=== PATIENT | female | born 1950 | race Caucasian/White ===

== ENCOUNTER 2016-10-05 07:20 | Day surgery (SDC) | payer MEDICARE ==
[~2016-10-05 07:20] MED LIST: EPINEPHrine 1:10,000 1 MG/10 ML Syringe ONE; Lactated Ringers 1,000 ML IV SCH; Lidocaine 2% 5 ML SDV ONE; Midazolam 1 MG/ML 2 ML SDV ONE; Propofol 200 MG/20 ML SDV ONE; Sodium Chloride 0.9% 5 ML Syringe FLUSH PRN; fentaNYL 100 MCG/2 ML SDV ONE
[2016-10-05] MEDS ORDERED: Midazolam 1 MG/ML 2 ML SDV IV ONE (08:11)
[2016-10-05] MEDS ORDERED: fentaNYL 100 MCG/2 ML SDV IV ONE (08:11)
[2016-10-05] MEDS ORDERED: Propofol 200 MG/20 ML SDV IV ONE (08:11)
--- NOTE | 2016-10-05 08:48 | PCM.OPNOTE ---
- General Post-Op/Procedure Note Date of Surgery/Procedure: 10/05/16 Operative Procedure(s): Upper GI endoscopy Anesthesia Technique: MAC Primary Surgeon: Melissa Schmidt Complications: None Free Text/Narrative:: INFORMED CONSENT: Patient is here today for elective upper GI endoscopy. All aspects of this procedure have been discussed with the patient. All possible complications also, including possibility of perforation, infection, pain, bleeding, numbness of the throat, swallowing difficulty and unknown complications. In the event of perforation the patient may need surgical exploration to repair the defect. The patient understands fully well. Patient did not have any further questions for me at the end of my interview. The patient wishes for me to proceed. INSTRUMENT USED: Video gastroscope ANESTHESIA: [MAC] ASA CLASSIFICATION: [2] PROCEDURE PERFORMED: [upper GI endoscopy] PHARYNX: Normal. ESOPHAGUS: Normal. Proximal: Normal. Middle: Normal. Lower: Normal. GE Junction: mild inflammation noted. also noted was a small quantity of old blood. Exact etiology is not determined at this time. There were no varices, ulcerations or strictures. Strictures were noted previously. 2 cm hiatal hernia without inflammation noted. STOMACH: Normal. Cardia: Normal. Fundus: Normal. Lesser Curvature: Normal. Greater Curvature: Normal. Antrum: Normal. Pylorus: Normal. DUODENUM: Normal. First Part: Normal. Second Part: Normal. Third Part: Normal. RETROFLEXION: Normal. BIOPSY: None. TOLERANCE: Excellent. COMPLICATIONS: None.
[2016-10-05 14:01] VITALS: BP 157/82
== END 2016-10-05 10:15 | disposition home or self-care (01) ==
LOC: KA.SDS 07:20
PROVIDERS: ATTEND Family Medicine
DX: K44.9 Diaphragmatic hernia without obstruction or gangrene (principal); K20.9 Esophagitis, unspecified; E66.01 Morbid (severe) obesity due to excess calories; F32.9 Major depressive disorder, single episode, unspecified; K21.9 Gastro-esophageal reflux disease without esophagitis; Z88.8 Allergy status to other drugs, medicaments and biological substances; Z79.899 Other long term (current) drug therapy
CPT/HCPCS: 43235; J2250; J2704; J3010; J7120; 00740

== ENCOUNTER 2017-01-31 16:09 | Emergency (ER) | payer MEDICARE ==
[2017-01-31] MEDS ORDERED: Ketorolac 60 MG/2 ML SDV IM ONE (16:11)
[2017-01-31] MEDS ORDERED: Cyclobenzaprine 10 MG Tab PO ONE ×2 (16:11→17:50)
[2017-01-31 16:34] VITALS: BP 129/50
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
[2017-01-31] MEDS ORDERED: Cyclobenzaprine 10 MG Tab ONE (17:49)
[2017-01-31] MEDS ORDERED: Ketorolac 10 MG Tab PO ONE (17:50)
[2017-01-31] MEDS ORDERED: Ketorolac 10 MG Tab ONE (17:50)
== END 2017-01-31 18:00 | disposition home or self-care (01) ==
LOC: KA.ED 16:09
DX: M54.5 Low back pain (principal); G89.29 Other chronic pain; K21.9 Gastro-esophageal reflux disease without esophagitis; Z88.5 Allergy status to narcotic agent; Z88.6 Allergy status to analgesic agent; Z79.899 Other long term (current) drug therapy
CPT/HCPCS: 72100; 96372; 99283; A9270; J1885

== ENCOUNTER 2018-08-04 22:06 | Observation (INO) | payer MEDICARE ==
[2018-08-04] MEDS ORDERED: Aspirin 81 MG Tab.Chew ONE (22:45)
[2018-08-04] MEDS ORDERED: Aspirin 81 MG Tab.Chew PO ONE (22:52)
[2018-08-04] MEDS: Nitroglycerin 0.4 MG Tab.SL SL PRN ×2 (22:55→23:30)
[2018-08-04 23:18] LABS: ANION GAP 13.8 mmol/L (5-15); CHLORIDE,CL 109 mmol/L (98-115); SODIUM,NA 143 mmol/L (136-145)
[2018-08-05] MEDS ORDERED: Ondansetron 4 MG/2 ML SDV IVPUSH PRN (00:16)
[2018-08-05] MEDS ORDERED: Morphine 2 MG/ML Syringe IVPUSH PRN (00:17)
[2018-08-05] MEDS: Nitroglycerin 0.4 MG Tab.SL SL PRN (02:30)
[2018-08-05] MEDS ORDERED: Nitroglycerin 0.4 MG Tab.SL SL ONE (03:07)
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
[2018-08-05 04:02] LABS: BARBITURATE SCREEN,URINE NEGATIVE (NEGATIVE); BENZODIAZEPINES SCREEN,URINE NEGATIVE (NEGATIVE); TCA SCREEN,URINE NEGATIVE (NEGATIVE); THC SCREEN,URINE 50 NG/ML NEGATIVE (NEGATIVE)
[2018-08-05 06:02] VITALS: BP 147/73
--- NOTE | 2018-08-05 09:28 | CR ---
[id number] RAD/RAD Chest Portable EXAM: PORTABLE CHEST RADIOGRAPH. INDICATION: CHEST PAIN COMPARISON: CORRELATION IS MADE WITH THE EXAM OF FEBRUARY 22, 2015. FINDINGS: The lungs are clear. The cardiomediastinal contour is normal. The regional bones and soft tissues are unremarkable. There is no pneumothorax. IMPRESSION: NO ACUTE PROCESS. Kristopher Rm MD 08/05/18 0927 Thank you for allowing us to participate in the care of your patient.
--- NOTE | 2018-08-05 10:54 | PCM.HP ---
H&P History of Present Illness - General Date of Service: 08/05/18 Admit Problem/Dx: Chest/shoulder pain Source of Information: Patient, Old Records History Limitations: Reports: No Limitations - History of Present Illness Initial Comments - Free Text/Narative: Ms. Berg states that she has had chronic neck and right shoulder pain which has been worsening over the past several months and she has been considering further work-up with her PCP STEPHANIE Adams, at recent appointments. On the evening of 08/04/18 around 2130 (incorrectly documented as 0930 in ED note ), she was sitting in the living room when she had worsening of right anterior shoulder and upper chest pain. She reports having not done anything out of the ordinary lately. Pain described as sharp and with radiation down her RUE with associated transient numbness and tingling. Palpation of the area of the anterior chest reproduced pain and pain was aggravated by "moving neck the wrong way." She felt diaphoretic as well, but denied any other associated symptoms, including left sided chest, neck, or LUE pain, palpitations, shortness of breath, or epigastric pain. Denied any worsening with exertion. She takes ibuprofen and acetaminophen at baseline for chronic back and neck pain. She was brought into the [facility] ED by a friend for further evaluation. She was given nitro x2 with eventual resolution of pain, but then later was present without change with nitro. This morning on rounds, she continues to have neck and R shoulder pain, but denies any radiation of pain into her RUE or other cardiopulmonary symptoms. She admits to having restarted taking phentermine which was previously prescribed to her, but denies any illicit drug use. Reports taking her other medications as prescribed. States she has a history of heart attack over 10 years ago, but that they did a catheterization at that time and "no blockages were found." She denies any other known heart disease. Due to having her chronic neck and shoulder pain and labs not showing elevated troponin, patient desires discharge to home. She wishes to await any further cardiac testing until seeing her PCP in follow-up and deciding on further work-up and management at that time. - Related Data Allergies/Adverse Reactions: Allergies Allergy/AdvReac Type Severity Reaction Status Date / Time aspirin Allergy Unknown Nausea Verified 08/05/18 02:12 codeine Allergy Unknown Nausea Verified 08/05/18 02:12 Home Medications: Home Meds Sertraline HCl 200 mg PO DAILY 07/29/13 [History] ClonazePAM [KlonoPIN] 0.5 mg PO BEDTIME PRN 09/28/16 [History] Diclofenac Sodium [Voltaren 1% Gel] 1 applic TOP BID PRN 09/28/16 [History] Ibuprofen 200 mg PO TID PRN 09/28/16 [History] Omeprazole 20 mg PO DAILY 09/28/16 [History] buPROPion [Wellbutrin XL] 300 mg PO DAILY 09/28/16 [History] Past Medical History HEENT History: Reports: Hard of Hearing, Impaired Vision Cardiovascular History: Reports: [place] Respiratory History: Reports: None Gastrointestinal History: Reports: Cholelithiasis, GERD, Irritable Bowel Syndrome, Other (See Below) Other Gastrointestinal History: Gastric polyps Genitourinary History: Reports: Other (See Below) Other Genitourinary History: Dribbling 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: Musculoskeletal History: Reports: Arthritis, Back Pain, Chronic, Fracture Other Musculoskeletal History: 2012 right foot fracture with screw placement ; Rib fractures Neurological History: Reports: Headaches, Chronic Psychiatric History: Reports: Anxiety, Depression, Eating Disorders, Mood Swings Endocrine/Metabolic History: Reports: None Hematologic History: Reports: Bleeding Disorder, Blood Transfusion(s), Iron Deficiency Immunologic History: Reports: None Oncologic (Cancer) History: Reports: None Dermatologic History: Reports: Other (See Below) Other Dermatologic History: Multiple scabs to bilateral arms & legs noted; Patient picks at scabs - Infectious Disease History Infectious Disease History: Reports: None - Past Surgical History Head Surgeries/Procedures: Reports: None Respiratory Surgical History: Reports: None GI Surgical History: Reports: Appendectomy, Bariatric Procedure, Cholecystectomy , Colonoscopy, EGD, Other (See Below) Other GI Surgeries/Procedures: Pt reports stomach stapling by Dr. Landa Female Surgical History: Reports: Hysterectomy, LEEP, Salpingo-Oophorectomy Endocrine Surgical History: Reports: None Neurological Surgical History: Reports: None Musculoskeletal Surgical History: Reports: None Oncologic Surgical History: Reports: None Social & Family History - Family History Cardiac: Reports: CAD, Hypertension, [place] Respiratory: Reports: COPD Musculoskeletal: Reports: Gout Endocrine/Metabolic: Reports: Diabetes, type II - Tobacco Use Smoking Status *Q: Never Smoker - Caffeine Use Caffeine Use: Reports: Soda, Other Other Caffeine Use: Cappuccino - Recreational Drug Use Recreational Drug Use: No - Living Situation & Occupation Living situation: Reports: with Significant Other Occupation: Unemployed H&P Review of Systems - Review of Systems: Review Of Systems: See Below General: Reports: Fatigue (chronic). Denies: Fever, Chills, Decreased Appetite HEENT: Reports: Hearing Changes (chronic hard of hearing). Denies: Ear Pain, Headaches, Sinus Congestion, Sore Throat Pulmonary: Denies: Shortness of Breath, Wheezing, Pleuritic Chest Pain, Cough Cardiovascular: Denies: Chest Pain, Dyspnea on Exertion, Orthopnea, Edema, Lightheadedness, Syncope Gastrointestinal: Denies: Abdominal Pain, Constipation, Diarrhea, Nausea, Vomiting Genitourinary: Denies: Dysuria, Frequency, Burning, Pain Musculoskeletal: Reports: Neck Pain, Shoulder Pain, Back Pain Skin: Denies: Cyanosis, Jaundice, Rash Psychiatric: Denies: Confusion, Depression, Anxiety Neurological: Denies: Confusion, Dizziness, Headache, Numbness, Tingling Exam - Exam Exam: See Below - Vital Signs Vital Signs: Last Vital Signs Temp 36.6 C 08/05/18 06:00 Pulse 68 08/05/18 06:00 Resp 18 08/05/18 06:00 BP 147/73 H 08/05/18 06:00 Pulse Ox 98 08/05/18 06:00 Weight: 70.789 kg - Exam Physical Exam Comments:: GENERAL: Tired appearing white female appearing older than stated age but in no acute distress sitting in hospital bed. HEENT: Normocephalic, atraumatic. Conjunctiva clear. Nares patent without discharge. Mucous membranes mildly dry, posterior pharynx unremarkable. Poor dentition. NECK: Supple, no masses. CV: Regular rate and rhythm, no murmurs, rubs, or gallops. 2+ radial pulses. PULMONARY: Normal effort, clear to auscultation bilaterally, no wheezes, rales, or rhonchi. ABDOMEN: Positive bowel sounds, soft, nontender, nondistended. EXTREMITIES: No edema, cyanosis, or clubbing. MUSCULOSKELETAL: Reproduction of index pain with palpation of R upper anterior chest and anterior shoulder. No shoulder scars, redness, ecchymosis, edema, or atrophy. Shoulder ROM full bilaterally except abduction limited to 100 degrees on R . Strength 5/5 in bilateral shoulders. Neer and Montes tests negative. Adducter test negative. Yergason and speed tests negative. NEUROLOGICAL: CN II-XII intact. Spurling positive on RUE; negative on LUE. Sensation to light touch intact of bilateral upper extremities. DERMATOLOGIC: No rashes or suspicious lesions in exposed areas. PSYCHIATRIC: Alert, interactive, appropriate affect. - Patient Data Lab Results Last 24 hrs: Laboratory Results - last 24 hr 08/04/18 08/04/18 08/05/18 Range/Units 10:39 10:39 03:30 WBC 7.07 (5.00-10.00) 10^3/uL RBC 3.59 L (3.80-5.50) 10^6/uL Hgb 11.9 L (12.0-16.0) g/dL Hct 35.8 L (37.0-47.0) % MCV 99.7 H D (82.0-92.0) fL MCH 33.1 H (27.0-31.0) pg MCHC 33.2 (32.0-36.0) g/dL RDW 12.0 (11.5-14.5) % Plt Count 263 (150-400) 10^3/uL MPV 9.5 (7.4-10.4) fL Immature Gran % (Auto) 0.1 (0.0-5.0) % Neut % (Auto) 66.8 (50.0-70.0) % Lymph % (Auto) 23.9 (20.0-40.0) % [place] % (Auto) 7.2 (2.0-8.0) % Eos % (Auto) 1.7 (1.0-3.0) % Baso % (Auto) 0.3 (0.0-1.0) % Immature Gran # (Auto) 0.01 (0.00-0.50) 10^3/uL Neut # (Auto) 4.72 (2.50-7.00) 10^3/uL Lymph # (Auto) 1.69 (1.00-4.00) 10^3/uL [place] # (Auto) 0.51 (0.10-0.80) 10^3/uL Eos # (Auto) 0.12 (0.10-0.30) 10^3/uL Baso # (Auto) 0.02 (0.00-0.10) 10^3/uL Sodium 143 (136-145) mmol/L Potassium 4.2 (3.3-5.3) mmol/L Chloride 109 (98-115) mmol/L Carbon Dioxide 24.4 (21.0-32.0) mmol/L Anion Gap 13.8 (5-15) mmol/L BUN 16 (6-25) mg/dL Creatinine 1.04 (0.51-1.17) mg/dL Est Cr Clr Drug Dosing TNP Estimated GFR (MDRD) 53 mL/min Glucose 86 (75 - 99) mg/dL Calcium 9.0 (8.7-10.3) mg/dL Phosphorus (2.6-4.7) mg/dL Magnesium 1.9 (1.8-2.4) mg/dL Troponin I < 0.04 (0.00-0.070) ng/mL Urine Opiates Screen (NEGATIVE) Ur Oxycodone Screen (NEGATIVE) Urine Methadone Screen (NEGATIVE) Ur Propoxyphene Screen (NEGATIVE) Ur Barbiturates Screen (NEGATIVE) Ur Tricyclics Screen (NEGATIVE) Ur Phencyclidine Scrn (NEGATIVE) Ur Amphetamine Screen (NEGATIVE) U Methamphetamines Scrn (NEGATIVE) U Benzodiazepines Scrn (NEGATIVE) U Cocaine Metab Screen (NEGATIVE) U Marijuana (THC) Screen (NEGATIVE) 08/05/18 08/05/18 08/05/18 Range/Units 03:30 03:45 09:15 WBC (5.00-10.00) 10^3/uL RBC (3.80-5.50) 10^6/uL Hgb (12.0-16.0) g/dL Hct (37.0-47.0) % MCV (82.0-92.0) fL MCH (27.0-31.0) pg MCHC (32.0-36.0) g/dL RDW (11.5-14.5) % Plt Count (150-400) 10^3/uL MPV (7.4-10.4) fL Immature Gran % (Auto) (0.0-5.0) % Neut % (Auto) (50.0-70.0) % Lymph % (Auto) (20.0-40.0) % [place] % (Auto) (2.0-8.0) % Eos % (Auto) (1.0-3.0) % Baso % (Auto) (0.0-1.0) % Immature Gran # (Auto) (0.00-0.50) 10^3/uL Neut # (Auto) (2.50-7.00) 10^3/uL Lymph # (Auto) (1.00-4.00) 10^3/uL [place] # (Auto) (0.10-0.80) 10^3/uL Eos # (Auto) (0.10-0.30) 10^3/uL Baso # (Auto) (0.00-0.10) 10^3/uL Sodium (136-145) mmol/L Potassium (3.3-5.3) mmol/L Chloride (98-115) mmol/L Carbon Dioxide (21.0-32.0) mmol/L Anion Gap (5-15) mmol/L BUN (6-25) mg/dL Creatinine (0.51-1.17) mg/dL Est Cr Clr Drug Dosing Estimated GFR (MDRD) mL/min Glucose (75 - 99) mg/dL Calcium (8.7-10.3) mg/dL Phosphorus 3.8 (2.6-4.7) mg/dL Magnesium (1.8-2.4) mg/dL Troponin I < 0.04 < 0.04 (0.00-0.070) ng/mL Urine Opiates Screen Negative (NEGATIVE) Ur Oxycodone Screen Negative (NEGATIVE) Urine Methadone Screen Negative (NEGATIVE) Ur Propoxyphene Screen Negative (NEGATIVE) Ur Barbiturates Screen Negative (NEGATIVE) Ur Tricyclics Screen Negative (NEGATIVE) Ur Phencyclidine Scrn Negative (NEGATIVE) Ur Amphetamine Screen Positive H (NEGATIVE) U Methamphetamines Scrn Negative (NEGATIVE) U Benzodiazepines Scrn Negative (NEGATIVE) U Cocaine Metab Screen Negative (NEGATIVE) U Marijuana (THC) Screen Negative (NEGATIVE) Result Diagrams: 08/04/18 10:39 08/04/18 10:39 EKG INTERPRETATION EKG Interpretation Comments: See hard copy interpretations of each EKG performed (#4). Problem List Initiated/Reviewed/Updated: Yes Orders Last 24hrs: Active Orders 24 hr Category Date Time Status Patient Status [ADT] Routine ADT 08/05/18 00:13 Ordered Cardiac Monitoring [RC] 0300,0700,1100,1500,1900,2300 Care 08/05/18 00:13 Active EKG Documentation Completion [RC] 0900 Care 08/05/18 00:24 Active Ready for Discharge [RC] PER UNIT ROUTINE Care 08/05/18 10:52 Active Up ad Marylou [RC] ASDIRECTED Care 08/05/18 06:21 Active Vital Signs [RC] 0300,0700,1100,1500,1900,2300 Care 08/05/18 02:13 Active Cardiac [Heart Healthy Diet] [DIET] Diet 08/05/18 Breakfast Active Morphine Med 08/05/18 00:17 Active 1 mg IVPUSH Q1H PRN Ondansetron [Zofran] Med 08/05/18 00:16 Active 4 mg IVPUSH Q6H PRN Code Status [Resuscitation Status] Routine Resus Stat 08/05/18 06:16 Ordered EKG 12 Lead [EK] Routine Ther 08/05/18 09:00 Ordered Medication Orders Morphine Sulfate (Morphine) 1 mg IVPUSH Q1H PRN PRN Reason: Chest Pain Ondansetron HCl (Zofran) 4 mg IVPUSH Q6H PRN PRN Reason: Nausea/Vomiting Assessment/Plan Comment:: HPI summary: Ms. Berg states that she has had chronic neck and right shoulder pain which has been worsening over the past several months and she has been considering further work-up with her PCP STEPHANIE Adams, at recent appointments. On the evening of 08/04/18 around 0 (incorrectly documented as 0930 in ED note), she was sitting in the living room when she had worsening of right anterior shoulder and upper chest pain. She reports having not done anything out of the ordinary lately. Pain described as sharp and with radiation down her RUE with associated transient numbness and tingling. Palpation of the area of the anterior chest reproduced pain and pain was aggravated by "moving neck the wrong way." She felt diaphoretic as well, but denied any other associated symptoms, including left sided chest, neck, or LUE pain, palpitations , shortness of breath, or epigastric pain. Denied any worsening with exertion. She takes ibuprofen and acetaminophen at baseline for chronic back and neck pain. She was brought into the [facility] ED by a friend for further evaluation. ED course: VS, initial labs and EKG, were all unremarkable except for mild elevation in systolic BP. She was given nitro x2 with eventual improvement of pain of part of chest, but with ongoing shoulder and RUE pain. She was admitted to observation status for cardiac monitoring and trending of troponin. Hospital course: She had recurrence of some right chest and shoulder pain not completely responsive to nitroglycerin, but improved by morning with position changes. Telemetry without abnormalities. EKG with subtle T-wave inversion in V3 -4. Repeat troponin 12 hours after onset of pain again normal. This morning on rounds, she continues to have neck and R shoulder pain, but denies any radiation of pain into her RUE or other cardiopulmonary symptoms. Exam notable for reproduction of index chest/shoulder pain with palpation and positive Spurling test on right. SIERRA score = 1 due to age. Risk factors for CAD include hx of MO >10yrs ago without abnormality on catheterization per patient report, obesity, intermittent elevated BP noted on outpatient record though without hx of being on antihypertensives, and family history of CAD. Notable negative risk factors include lack of HLD, DMT2, or tobacco use. She admits to having restarted taking phentermine which was previously prescribed to her, but denies any illicit drug use. She desired discharge to home. She wishes to await any further cardiac testing until seeing her PCP in follow-up and deciding on further work-up and management at that time. Hospitalization problems: # Right chest/neck/RUE pain # Hx MO, per patient report # Obesity: BMI 31. # Positive amphetamine on urine drug screen: Possibly due to phentermine use. Chronic, stable conditions: # GERD: Omeprazole. Controlled. # Chronic back pain: Diclofenac gel. Improved since recent RFA. # Major recurrent depression: Sertraline, bupropion. Stable. # Insomnia: Clonazepam prn.
--- NOTE | 2018-08-05 10:55 | PCM.DCSUM1 ---
Discharge Summary - Hospital Course Free Text/Narrative:: Date of admission: 08/05/18 Date of discharge: 08/05/18 Admission diagnoses: # Right chest/neck/RUE pain # Hx CT, per patient report # Obesity: BMI 31. # Positive amphetamine on urine drug screen # GERD: Omeprazole. Controlled. # Chronic back pain: Diclofenac gel. Improved since recent RFA. # Major recurrent depression: Sertraline, bupropion. Stable. # Insomnia: Clonazepam prn Discharge diagnoses: # Costochondritis # Right cervical radiculopathy # Right chest/neck/RUE pain # Hx CT, per patient report # Obesity: BMI 31. # Positive amphetamine on urine drug screen # GERD: Omeprazole. Controlled. # Chronic back pain: Diclofenac gel. Improved since recent RFA. # Major recurrent depression: Sertraline, bupropion. Stable. # Insomnia: Clonazepam prn HPI summary: Ms. Berg states that she has had chronic neck and right shoulder pain which has been worsening over the past several months and she has been considering further work-up with her PCP STEPHANIE Adams, at recent appointments. On the evening of 08/04/18 around 2130 (incorrectly documented as 0930 in ED note), she was sitting in the living room when she had worsening of right anterior shoulder and upper chest pain. She reports having not done anything out of the ordinary lately. Pain described as sharp and with radiation down her RUE with associated transient numbness and tingling. Palpation of the area of the anterior chest reproduced pain and pain was aggravated by "moving neck the wrong way." She felt diaphoretic as well, but denied any other associated symptoms, including left sided chest, neck, or LUE pain, palpitations , shortness of breath, or epigastric pain. Denied any worsening with exertion. She takes ibuprofen and acetaminophen at baseline for chronic back and neck pain. She was brought into the [facility] ED by a friend for further evaluation. ED course: VS, initial labs and EKG, were all unremarkable except for mild elevation in systolic BP. She was given nitro x2 with eventual improvement of pain of part of chest, but with ongoing shoulder and RUE pain. She was admitted to observation status for cardiac monitoring and trending of troponin. Hospital course: She had recurrence of some right chest and shoulder pain not completely responsive to nitroglycerin, but improved by morning with position changes. Telemetry without abnormalities. EKG with subtle T-wave inversion in V3 -4. Repeat troponin 12 hours after onset of pain again normal. This morning on rounds, she continues to have neck and R shoulder pain, but denies any radiation of pain into her RUE or other cardiopulmonary symptoms. Exam notable for reproduction of index chest/shoulder pain with palpation and positive Spurling test on right. SIERRA score = 1 due to age. Risk factors for CAD include hx of CT >10yrs ago without abnormality on catheterization per patient report, obesity, intermittent elevated BP noted on outpatient record though without hx of being on antihypertensives, and family history of CAD. Notable negative risk factors include lack of HLD, DMT2, or tobacco use. She admits to having restarted taking phentermine which was previously prescribed to her, but denies any illicit drug use. She desired discharge to home. Discussed return precautions in detail, specifically for any cardiopulmonary complaints. Discharge/follow-up recommendations: - Discontinue phentermine and nonprescribed medications - Ibuprofen 600mg TID for costochondritis - Consider outpatient pharmacologic cardiac stress test given hx of chest pain, albeit atypical, history of prior CT per patient report, and T-wave inversions on repeat EKG; offered placing order for this, but she wishes to await any further cardiac testing until seeing her PCP in follow-up and deciding on further work-up and management at that time - Consider MRI imaging of cervical spine for further elucidation of clinical right cervical radiculopathy if symptoms persistent This is a same day admission and discharge. - Discharge Data Discharge Date: 08/05/18 Discharge Disposition: Home, Self-Care 01 Preliminary Cause of *Q: Cardiac Arrest Condition: Good - Patient Instructions Diet: Heart Healthy Diet Activity: As Tolerated Showering/Bathing: June Shower Notify Provider of: Fever, Increased Pain, Nausea and/or Vomiting - Discharge Plan *PRESCRIPTION DRUG MONITORING PROGRAM REVIEWED*: Yes *COPY OF PRESCRIPTION DRUG MONITORING REPORT IN PATIENT GREGORIO: Yes Home Medications: Home Meds Sertraline HCl 200 mg PO DAILY 07/29/13 [History] ClonazePAM [KlonoPIN] 0.5 mg PO BEDTIME PRN 09/28/16 [History] Diclofenac Sodium [Voltaren 1% Gel] 1 applic TOP BID PRN 09/28/16 [History] Ibuprofen 200 mg PO TID PRN 09/28/16 [History] Omeprazole 20 mg PO DAILY 09/28/16 [History] buPROPion [Wellbutrin XL] 300 mg PO DAILY 09/28/16 [History] Referrals: Alexi James, FOLLOW UP MANAGER [Nurse Practitioner] - 08/16/18 - Discharge Summary/Plan Comment DC Time >30 min.: Yes - Patient Data Vitals - Most Recent: Last Vital Signs Temp 36.6 C 08/05/18 06:00 Pulse 68 08/05/18 06:00 Resp 18 08/05/18 06:00 BP 147/73 H 08/05/18 06:00 Pulse Ox 98 08/05/18 06:00 Weight - Most Recent: 70.789 kg I&O - Last 24 hours: Intake & Output 08/04/18 08/05/18 08/05/18 22:59 06:59 14:59 Intake Total 0 Output Total 200 Balance -200 Lab Results - Last 24 hrs: Laboratory Results - last 24 hr 08/04/18 08/04/18 08/05/18 Range/Units 10:39 10:39 03:30 WBC 7.07 (5.00-10.00) 10^3/uL RBC 3.59 L (3.80-5.50) 10^6/uL Hgb 11.9 L (12.0-16.0) g/dL Hct 35.8 L (37.0-47.0) % MCV 99.7 H D (82.0-92.0) fL MCH 33.1 H (27.0-31.0) pg MCHC 33.2 (32.0-36.0) g/dL RDW 12.0 (11.5-14.5) % Plt Count 263 (150-400) 10^3/uL MPV 9.5 (7.4-10.4) fL Immature Gran % (Auto) 0.1 (0.0-5.0) % Neut % (Auto) 66.8 (50.0-70.0) % Lymph % (Auto) 23.9 (20.0-40.0) % [place] % (Auto) 7.2 (2.0-8.0) % Eos % (Auto) 1.7 (1.0-3.0) % Baso % (Auto) 0.3 (0.0-1.0) % Immature Gran # (Auto) 0.01 (0.00-0.50) 10^3/uL Neut # (Auto) 4.72 (2.50-7.00) 10^3/uL Lymph # (Auto) 1.69 (1.00-4.00) 10^3/uL [place] # (Auto) 0.51 (0.10-0.80) 10^3/uL Eos # (Auto) 0.12 (0.10-0.30) 10^3/uL Baso # (Auto) 0.02 (0.00-0.10) 10^3/uL Sodium 143 (136-145) mmol/L Potassium 4.2 (3.3-5.3) mmol/L Chloride 109 (98-115) mmol/L Carbon Dioxide 24.4 (21.0-32.0) mmol/L Anion Gap 13.8 (5-15) mmol/L BUN 16 (6-25) mg/dL Creatinine 1.04 (0.51-1.17) mg/dL Est Cr Clr Drug Dosing TNP Estimated GFR (MDRD) 53 mL/min Glucose 86 (75 - 99) mg/dL Calcium 9.0 (8.7-10.3) mg/dL Phosphorus (2.6-4.7) mg/dL Magnesium 1.9 (1.8-2.4) mg/dL Troponin I < 0.04 (0.00-0.070) ng/mL Urine Opiates Screen (NEGATIVE) Ur Oxycodone Screen (NEGATIVE) Urine Methadone Screen (NEGATIVE) Ur Propoxyphene Screen (NEGATIVE) Ur Barbiturates Screen (NEGATIVE) Ur Tricyclics Screen (NEGATIVE) Ur Phencyclidine Scrn (NEGATIVE) Ur Amphetamine Screen (NEGATIVE) U Methamphetamines Scrn (NEGATIVE) U Benzodiazepines Scrn (NEGATIVE) U Cocaine Metab Screen (NEGATIVE) U Marijuana (THC) Screen (NEGATIVE) 08/05/18 08/05/18 08/05/18 Range/Units 03:30 03:45 09:15 WBC (5.00-10.00) 10^3/uL RBC (3.80-5.50) 10^6/uL Hgb (12.0-16.0) g/dL Hct (37.0-47.0) % MCV (82.0-92.0) fL MCH (27.0-31.0) pg MCHC (32.0-36.0) g/dL RDW (11.5-14.5) % Plt Count (150-400) 10^3/uL MPV (7.4-10.4) fL Immature Gran % (Auto) (0.0-5.0) % Neut % (Auto) (50.0-70.0) % Lymph % (Auto) (20.0-40.0) % [place] % (Auto) (2.0-8.0) % Eos % (Auto) (1.0-3.0) % Baso % (Auto) (0.0-1.0) % Immature Gran # (Auto) (0.00-0.50) 10^3/uL Neut # (Auto) (2.50-7.00) 10^3/uL Lymph # (Auto) (1.00-4.00) 10^3/uL [place] # (Auto) (0.10-0.80) 10^3/uL Eos # (Auto) (0.10-0.30) 10^3/uL Baso # (Auto) (0.00-0.10) 10^3/uL Sodium (136-145) mmol/L Potassium (3.3-5.3) mmol/L Chloride (98-115) mmol/L Carbon Dioxide (21.0-32.0) mmol/L Anion Gap (5-15) mmol/L BUN (6-25) mg/dL Creatinine (0.51-1.17) mg/dL Est Cr Clr Drug Dosing Estimated GFR (MDRD) mL/min Glucose (75 - 99) mg/dL Calcium (8.7-10.3) mg/dL Phosphorus 3.8 (2.6-4.7) mg/dL Magnesium (1.8-2.4) mg/dL Troponin I < 0.04 < 0.04 (0.00-0.070) ng/mL Urine Opiates Screen Negative (NEGATIVE) Ur Oxycodone Screen Negative (NEGATIVE) Urine Methadone Screen Negative (NEGATIVE) Ur Propoxyphene Screen Negative (NEGATIVE) Ur Barbiturates Screen Negative (NEGATIVE) Ur Tricyclics Screen Negative (NEGATIVE) Ur Phencyclidine Scrn Negative (NEGATIVE) Ur Amphetamine Screen Positive H (NEGATIVE) U Methamphetamines Scrn Negative (NEGATIVE) U Benzodiazepines Scrn Negative (NEGATIVE) U Cocaine Metab Screen Negative (NEGATIVE) U Marijuana (THC) Screen Negative (NEGATIVE) Med Orders - Current: Current Medications Morphine Sulfate (Morphine) 1 mg IVPUSH Q1H PRN PRN Reason: Chest Pain Ondansetron HCl (Zofran) 4 mg IVPUSH Q6H PRN PRN Reason: Nausea/Vomiting Discontinued Medications Aspirin (Aspirin) Confirm Administered Dose 324 mg .ROUTE .STK-MED ONE Stop: 08/04/18 22:46 Last Admin: 08/04/18 22:50 Dose: Not Given Aspirin (Aspirin) 324 mg PO ONETIME ONE Stop: 08/04/18 22:53 Last Admin: 08/04/18 22:55 Dose: 324 mg Nitroglycerin (Nitrostat) 0.4 mg SL Q5M PRN PRN Reason: Chest Pain Last Admin: 08/05/18 02:30 Dose: 0.4 mg Nitroglycerin (Nitrostat) 0.4 mg SL ONETIME ONE Stop: 08/05/18 03:08 Last Admin: 08/05/18 03:25 Dose: 0.4 mg
== END 2018-08-05 12:19 | disposition home or self-care (01) ==
LOC: KA.ED 22:06 → KA.MS 08-05 01:15
PROVIDERS: ADMIT Nurse Practitioner Family; ATTEND Family Medicine
DX: R07.9 Chest pain, unspecified (principal); M94.0 Chondrocostal junction syndrome [Tietze]; M54.12 Radiculopathy, cervical region; M54.9 Dorsalgia, unspecified; G89.29 Other chronic pain; F33.9 Major depressive disorder, recurrent, unspecified; G47.00 Insomnia, unspecified; I25.2 Old myocardial infarction; K21.9 Gastro-esophageal reflux disease without esophagitis; E66.9 Obesity, unspecified; Z68.31 Body mass index [BMI] 31.0-31.9, adult; Z79.899 Other long term (current) drug therapy; Z88.5 Allergy status to narcotic agent; Z88.8 Allergy status to other drugs, medicaments and biological substances
CPT/HCPCS: 36415; 71045; 80048; 80305; 83735; 84100; 84484; 85025; 93005; 99285; A9270; 99284; G0378

== ENCOUNTER 2019-08-18 13:57 | Emergency (ER) | payer MEDICARE ==
[2019-08-18] MEDS ORDERED: Sodium Chloride 0.9% 10 ML Syringe FLUSH PRN (14:24)
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
[2019-08-18 15:13] VITALS: BP 146/63; PULSE 62
--- NOTE | 2019-08-18 15:31 | CR ---
[id number] RAD/RAD Chest PA And Lateral EXAM: RAD Chest PA And Lateral CLINICAL DATA: CHEST PAIN COMPARISON: CORRELATION IS MADE WITH AUGUST 04, 2018 FINDINGS: The lungs are clear. The cardiomediastinal contour is enlarged but stable. The regional bones and soft tissues are unremarkable. IMPRESSION: NO ACUTE PROCESS. Kristopher Rm MD 08/18/19 [id number] Thank you for allowing us to participate in the care of your patient.
[2019-08-18 15:48] LABS: ANION GAP 13.5 mmol/L (5-15)
== END 2019-08-18 16:00 | disposition home or self-care (01) ==
LOC: KA.ED 13:57
DX: J06.9 Acute upper respiratory infection, unspecified (principal); Z20.828 Contact with and (suspected) exposure to other viral communicable diseases; K21.9 Gastro-esophageal reflux disease without esophagitis; F41.9 Anxiety disorder, unspecified; F32.9 Major depressive disorder, single episode, unspecified; I25.2 Old myocardial infarction; Z79.899 Other long term (current) drug therapy
CPT/HCPCS: 71046; 80053; 85025; 99283-25; 99284; U0002

== ENCOUNTER 2019-12-28 11:39 | Emergency (ER) | payer MEDICARE ==
[2019-12-28] MEDS ORDERED: Sodium Chloride 0.9% 1,000 ML IV SCH ×2 (12:15→15:15)
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
--- NOTE | 2019-12-28 12:39 | CT ---
[id number] CT/CT Head WO IV EXAM: NONCONTRAST HEAD CT INDICATION: ALTERED MENTAL STATUS. COMPARISON: April 18, 2015. DISCUSSION: Stable mild generalized atrophy. Stable mild to moderate chronic small vessel ischemic changes No mass effect or midline shift. No acute hemorrhage or extra-axial fluid collection. No acute territorial infarct is identified. A limited look at the orbits and paranasal sinuses is unremarkable. IMPRESSION: 1. No acute findings. Nemesio Barahona MD 12/28/19 [id number] Thank you for allowing us to participate in the care of your patient.
[2019-12-28 13:15] LABS: ANION GAP 27.2 mmol/L (5-15)
[2019-12-28 13:18] LABS: PCO2 ARTERIAL,POC 22 mmHg (35-48)
--- NOTE | 2019-12-28 13:56 | CR ---
[id number] RAD/RAD Chest PA or AP 1V; [id number] RAD/RAD Chest Right Decubitus EXAM: RAD Chest PA or AP 1V, RAD Chest Right Decubitus INDICATION: SHORTNESS OF BREATH. COMPARISON: August 18, 2019. DISCUSSION: Abnormal opacity in the left lung. Findings include what appears to be a pleural effusion as well as parenchymal opacity. Opacity is somewhat rounded in appearance. Findings are relatively unchanged in appearance between the upright and decubitus images, suggesting loculated effusion if effusion is in fact present. CT examination of the chest with intravenous contrast is recommended. If there is contraindication to contrast material, noncontrast examination would also be of benefit. Right lung is clear. IMPRESSION: As above. Greyson Noel MD 12/28/19 [id number] Thank you for allowing us to participate in the care of your patient.
[2019-12-28] MEDS ORDERED: Sodium Chloride 0.9% 10 ML Syringe FLUSH SCH (14:00)
[2019-12-28] MEDS ORDERED: cefTRIAXone 1 GM Vial IVPUSH ONE (14:20)
[2019-12-28] MEDS ORDERED: Potassium Chloride 20 MEQ Tab.ER PO SCH (14:30)
[2019-12-28 14:34] LABS: BARBITURATE SCREEN,URINE NEGATIVE (NEGATIVE); BENZODIAZEPINES SCREEN,URINE NEGATIVE (NEGATIVE); TCA SCREEN,URINE NEGATIVE (NEGATIVE); THC SCREEN,URINE 50 NG/ML NEGATIVE (NEGATIVE)
[2019-12-28] MEDS ORDERED: cefTRIAXone 2 GM Vial IVPUSH ONE (14:48)
[2019-12-28] MEDS ORDERED: Azithromycin 500 MG in Sodium Chloride 0.9% 250 ML IV ONE (14:49)
[2019-12-28] MEDS ORDERED: Potassium Chloride 20 MEQ in Premix Bag 1 BAG IV ONE (14:54)
--- NOTE | 2019-12-28 14:55 | CT ---
[id number] CT/CT Chest WO IV EXAM: CT Chest WO IV CLINICAL DATA: SHORTNESS OF BREATH. COMPARISON STUDY: January 2013. FINDINGS: Lungs:, Correlating with appearance on radiograph from today. Moderate-sized left-sided pleural effusion. Effusion is loculated, correlating with appearance on radiograph from today. In the midportion of this there are 2 closely approximated areas of lucency, suggesting hydropneumothorax versus cavitary lesion/pneumonia in the left midlung. On the right there are patchy areas of geographic appearing nonmasslike opacification in the right upper and middle lobes (series 3 image 30). Mediastinum: Multiple prominent mediastinal and hilar lymph nodes, including a 9 x 18 x 13 mm prevascular node. Heart and great vessels: Heart is normal in size. No pericardial effusion. Thoracic aorta is normal in caliber. Pulmonary arteries are normal in caliber. Bones: Spondylosis. Diffuse bone demineralization. Chronic compression deformities of T1, T2, T3, T9, T12, and L1 Upper abdomen: Post surgical change from gastric bypass. Small hiatus hernia. Fluid in the mid and distal esophagus. Mild slightly. IMPRESSION: Loculated left pleural effusion with possible small component of hydropneumothorax versus cavitary mass/infectious process in the left midlung. Correlate for signs of infection. Consider surgical consultation for further evaluation. Patchy areas of nonmasslike geographic appearing groundglass opacification in the right upper and middle lobes. Finding is most consistent with infectious/inflammatory process as well. Gastric bypass with hiatus hernia and fluid in the mid/distal esophagus. Results relayed to Franklin Jacques at time of dictation Greyson Noel MD 12/28/19 [id number] Thank you for allowing us to participate in the care of your patient.
[2019-12-28 15:23] VITALS: BP 191/76; PULSE 93
== END 2019-12-28 15:25 ==
LOC: KA.ED 11:39
DX: N17.9 Acute kidney failure, unspecified (principal); E87.2 Acidosis; I25.2 Old myocardial infarction; F41.9 Anxiety disorder, unspecified; F32.9 Major depressive disorder, single episode, unspecified; Z90.49 Acquired absence of other specified parts of digestive tract; Z88.5 Allergy status to narcotic agent; Z90.710 Acquired absence of both cervix and uterus; Z79.899 Other long term (current) drug therapy
CPT/HCPCS: 36415; 36600; 70450; 71045; 71045-RT; 71250; 80053; 80305-QW; 81001; 82803; 83605; 83880; 85027; 93005; 96365; 96368; 96375; 99284; 99285-25; A9270-GY; J0456; J0696; J3480; J7030; J7050

== ENCOUNTER 2020-01-25 10:20 | Inpatient (IN) | payer MEDICARE, MEDICAID, OTHER ==
[~2020-01-25 10:20] MED LIST changes: -EPINEPHrine 1:10,000 1 MG/10 ML Syringe ONE; -Lactated Ringers 1,000 ML IV SCH; -Lidocaine 2% 5 ML SDV ONE; -Midazolam 1 MG/ML 2 ML SDV ONE; -Propofol 200 MG/20 ML SDV ONE; +Sodium Chloride 0.9% 10 ML Syringe FLUSH PRN; -Sodium Chloride 0.9% 5 ML Syringe FLUSH PRN; -fentaNYL 100 MCG/2 ML SDV ONE
[2020-01-25] MEDS: Ertapenem 1 GM in Sodium Chloride 0.9% 50 ML IV SCH (11:15)
[2020-01-25] MEDS: Sodium Chloride 0.9% 100 ML IV SCH (11:15)
[2020-01-25] MEDS: tiZANidine 4 MG Tab PO PRN (17:35)
[2020-01-25] MEDS: ClonazePAM 0.5 MG Tab PO PRN (22:40)
[2020-01-26] MEDS: Omeprazole 20 MG Cap.CR PO SCH ×2 (06:14→06:29)
[2020-01-26] MEDS: Losartan 25 MG Tab PO SCH (08:32)
[2020-01-26] MEDS: Hydrochlorothiazide 25 MG Tab PO SCH (08:32)
[2020-01-26] MEDS: Sertraline 50 MG Tab PO SCH (08:33)
[2020-01-26] MEDS: Sodium Chloride 0.9% 100 ML IV SCH (09:04)
[2020-01-26] MEDS: Ertapenem 1 GM in Sodium Chloride 0.9% 50 ML IV SCH (09:06)
--- NOTE | 2020-01-26 10:39 | CR ---
[id number] RAD/RAD Chest PA or AP 1V EXAM: FRONTAL CHEST INDICATION: CHECK PICC PLACEMENT. COMPARISON: December 28, 2019. DISCUSSION: Interval placement right upper extremity PICC line with serial radiographs obtained. The final radiograph demonstrates PICC position within the right atrium in satisfactory position. There is stable cardiomegaly. Mild to moderate bilateral patchy bilateral airspace opacities have increased. A small loculated left effusion has decreased. IMPRESSION: 1. Mild to moderate patchy bilateral infiltrates are new or increased. 2. Small loculated left pleural effusion, decreased. 3. Right upper extremity PICC catheter tip satisfactory position within the right atrium. Nemesio Barahona MD 01/26/20 1038 Thank you for allowing us to participate in the care of your patient.
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
[2020-01-26 13:34] LABS: ANION GAP 12.9 mmol/L (5-15); CHLORIDE,CL 104 mmol/L (98-115); SODIUM,NA 140 mmol/L (136-145)
--- NOTE | 2020-01-26 14:01 | PROC ---
DATE OF PROCEDURE: PHYSICIAN: Marie Jacobs CRNA PROCEDURE: PICC line insertion. INDICATIONS: [facility], receiving IV antibiotics twice a day through the latter part of January, so venous access for her is somewhat difficult. The patient was consulted for PICC line placement. I did discuss risks, benefits, and alternatives of this placement with the patient. She did agree and wished to proceed. Informed consent was obtained. The patient continued to stay in her room. DESCRIPTION OF PROCEDURE: I did use ultrasound. With the ultrasound, I did find the brachiocephalic in the right arm mid antecubital between the antecubital and the shoulder. I did use a ChloraPrep for the skin solution. After the ChloraPrep, I then used 2 mL of 1% lidocaine for skin infiltration following that. I then used a 20-gauge __abbocath that was inserted without any difficulty with good blood return. Prior to any of this, we had the sterile draping around this as well as around the whole site and we did use the sterile probe cover as well. The 20-gauge abbocath__ like I said was inserted without any difficulty. The guidewire advanced without difficulty. I then was able to place the introducer. Following that I threaded the PICC line without any difficulty. I did use the Sherlock device. Good confirmation of descending PICC line into the SVC. Upon completion, we did obtain a chest x-ray. The chest x-ray showed confirmation of the PICC line in the SVC. The PICC line was then aspirated blood without any difficulty in both of the lumens. I did flush and place sterile cap on the end of each of the lumens. After that, I then placed a sterile dressing and did measure her arm circumference at 34.5. Her PICC line measured 35 at the skin. This was a 55 cm, 5-[place] that was inserted. The patient tolerated this without any difficulty. The card and instructions will be with the patient and nursing will do all of the education prior to her discharge to home for outpatient antibiotics. The patient did not have any further questions at this point in time. /[id number]/MODL MTDD
[2020-01-26] MEDS: tiZANidine 4 MG Tab PO PRN (22:56)
[2020-01-26] MEDS: ClonazePAM 0.5 MG Tab PO PRN (22:56)
[2020-01-27] MEDS: tiZANidine 4 MG Tab PO PRN ×2 (07:38→19:00)
[2020-01-27] MEDS: Omeprazole 20 MG Cap.CR PO SCH (07:38)
[2020-01-27] MEDS ORDERED: Potassium Chloride 10 MEQ Tab.ER PO ONE (09:00)
[2020-01-27 09:04] LABS: CHLORIDE,CL 107 mmol/L (98-115); SODIUM,NA 143 mmol/L (136-145)
[2020-01-27] MEDS: Sertraline 50 MG Tab PO SCH (09:04)
[2020-01-27] MEDS: Hydrochlorothiazide 25 MG Tab PO SCH (09:04)
[2020-01-27] MEDS: Losartan 25 MG Tab PO SCH (09:04)
[2020-01-27] MEDS: Sodium Chloride 0.9% 100 ML IV SCH (09:05)
[2020-01-27] MEDS: Ertapenem 1 GM in Sodium Chloride 0.9% 50 ML IV SCH (09:05)
[2020-01-27] MEDS ORDERED: Potassium Chloride 20 MEQ Tab.ER PO ONE (12:00)
[2020-01-28] MEDS: tiZANidine 4 MG Tab PO PRN ×2 (05:30→19:53)
[2020-01-28 07:19] LABS: ANION GAP 9.1 mmol/L (5-15); CHLORIDE,CL 107 mmol/L (98-115); SODIUM,NA 141 mmol/L (136-145)
[2020-01-28] MEDS: Omeprazole 20 MG Cap.CR PO SCH (08:37)
[2020-01-28] MEDS: Losartan 25 MG Tab PO SCH (08:38)
[2020-01-28] MEDS: Hydrochlorothiazide 25 MG Tab PO SCH (08:38)
[2020-01-28] MEDS: Sodium Chloride 0.9% 100 ML IV SCH (08:38)
[2020-01-28] MEDS: Ertapenem 1 GM in Sodium Chloride 0.9% 50 ML IV SCH (08:39)
[2020-01-28] MEDS: Potassium Chloride 10 MEQ Tab.ER PO SCH (11:36)
[2020-01-28] MEDS: Sertraline 50 MG Tab PO SCH ×3 (11:44→20:16)
[2020-01-28] MEDS: Ondansetron 4 MG/2 ML SDV IVPUSH PRN (20:15)
[2020-01-29] MEDS: Ondansetron 4 MG/2 ML SDV IVPUSH PRN ×2 (04:32→20:41)
[2020-01-29] MEDS: Omeprazole 20 MG Cap.CR PO SCH (07:42)
[2020-01-29] MEDS: Hydrochlorothiazide 25 MG Tab PO SCH (09:27)
[2020-01-29] MEDS: Ertapenem 1 GM in Sodium Chloride 0.9% 50 ML IV SCH (09:28)
[2020-01-29] MEDS: Sodium Chloride 0.9% 100 ML IV SCH (09:29)
[2020-01-29] MEDS: Potassium Chloride 10 MEQ Tab.ER PO SCH (09:29)
[2020-01-29] MEDS: tiZANidine 4 MG Tab PO PRN ×2 (09:30→19:43)
[2020-01-29] MEDS: Sertraline 50 MG Tab PO SCH ×2 (19:43→20:45)
[2020-01-29] MEDS: ClonazePAM 0.5 MG Tab PO PRN (20:41)
[2020-01-30] MEDS: Ondansetron 4 MG/2 ML SDV IVPUSH PRN ×2 (07:21→21:34)
[2020-01-30] MEDS: Omeprazole 20 MG Cap.CR PO SCH (07:21)
[2020-01-30] MEDS: Potassium Chloride 10 MEQ Tab.ER PO SCH (08:26)
[2020-01-30] MEDS: Hydrochlorothiazide 25 MG Tab PO SCH (08:26)
[2020-01-30] MEDS: Ertapenem 1 GM in Sodium Chloride 0.9% 50 ML IV SCH (08:27)
[2020-01-30] MEDS: Sodium Chloride 0.9% 100 ML IV SCH (08:27)
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
[2020-01-30] MEDS: Sertraline 50 MG Tab PO SCH (21:07)
[2020-01-31] MEDS: ClonazePAM 0.5 MG Tab PO PRN (01:53)
[2020-01-31] MEDS: Omeprazole 20 MG Cap.CR PO SCH (08:14)
[2020-01-31] MEDS: Hydrochlorothiazide 25 MG Tab PO SCH (08:15)
[2020-01-31] MEDS: Potassium Chloride 10 MEQ Tab.ER PO SCH (08:15)
[2020-01-31] MEDS: Ertapenem 1 GM in Sodium Chloride 0.9% 50 ML IV SCH (09:41)
[2020-01-31] MEDS: Sodium Chloride 0.9% 100 ML IV SCH (09:46)
[2020-01-31] MEDS: Sertraline 50 MG Tab PO SCH (21:33)
[2020-01-31] MEDS: Sodium Chloride 0.9% 10 ML Syringe FLUSH PRN ×2 (21:45→22:36)
[2020-01-31] MEDS: Ondansetron 4 MG/2 ML SDV IVPUSH PRN (22:33)
[2020-02-01] MEDS: Omeprazole 20 MG Cap.CR PO SCH (06:37)
[2020-02-01] MEDS: Ertapenem 1 GM in Sodium Chloride 0.9% 50 ML IV SCH (08:29)
[2020-02-01] MEDS: Potassium Chloride 10 MEQ Tab.ER PO SCH (08:30)
[2020-02-01] MEDS: Sodium Chloride 0.9% 100 ML IV SCH (08:30)
[2020-02-01] MEDS: Hydrochlorothiazide 25 MG Tab PO SCH (08:31)
[2020-02-01] MEDS: Cephalexin 250 MG Cap PO SCH ×3 (11:32→22:19)
[2020-02-01] MEDS: Sertraline 50 MG Tab PO SCH (20:38)
[2020-02-01] MEDS: ClonazePAM 0.5 MG Tab PO PRN (23:30)
[2020-02-02] MEDS: Omeprazole 20 MG Cap.CR PO SCH ×2 (05:58→06:36)
[2020-02-02] MEDS: Cephalexin 250 MG Cap PO SCH ×4 (05:58→22:45)
[2020-02-02 08:02] LABS: ANION GAP 6.7 mmol/L (5-15); CHLORIDE,CL 105 mmol/L (98-115); SODIUM,NA 139 mmol/L (136-145)
[2020-02-02] MEDS: Hydrochlorothiazide 25 MG Tab PO SCH (08:52)
[2020-02-02] MEDS: Potassium Chloride 10 MEQ Tab.ER PO SCH (08:52)
[2020-02-02] MEDS: Ertapenem 1 GM in Sodium Chloride 0.9% 50 ML IV SCH (08:53)
[2020-02-02] MEDS: Sodium Chloride 0.9% 100 ML IV SCH (08:53)
[2020-02-02] MEDS: Sertraline 50 MG Tab PO SCH (20:31)
[2020-02-02] MEDS: Sodium Chloride 0.9% 10 ML Syringe FLUSH PRN (20:45)
[2020-02-02] MEDS: Ondansetron 4 MG/2 ML SDV IVPUSH PRN (20:46)
[2020-02-02] MEDS ORDERED: Ketorolac 30 MG/ML SDV IVPUSH ONE (22:12)
[2020-02-03] MEDS: Cephalexin 250 MG Cap PO SCH ×4 (05:51→22:26)
[2020-02-03] MEDS: Omeprazole 20 MG Cap.CR PO SCH (07:25)
[2020-02-03] MEDS: Ertapenem 1 GM in Sodium Chloride 0.9% 50 ML IV SCH (08:20)
[2020-02-03] MEDS: Sodium Chloride 0.9% 100 ML IV SCH (08:20)
[2020-02-03] MEDS: Hydrochlorothiazide 25 MG Tab PO SCH (08:21)
[2020-02-03] MEDS: Potassium Chloride 10 MEQ Tab.ER PO SCH (08:21)
[2020-02-03] MEDS: Sodium Chloride 0.9% 10 ML Syringe FLUSH PRN (20:48)
[2020-02-03] MEDS: Ondansetron 4 MG/2 ML SDV IVPUSH PRN (20:49)
[2020-02-03] MEDS: Sertraline 50 MG Tab PO SCH (20:51)
[2020-02-03] MEDS: ClonazePAM 0.5 MG Tab PO PRN (23:33)
[2020-02-03] MEDS: tiZANidine 4 MG Tab PO PRN (23:34)
[2020-02-04] MEDS: Cephalexin 250 MG Cap PO SCH ×2 (05:45→10:11)
[2020-02-04] MEDS: Potassium Chloride 10 MEQ Tab.ER PO SCH (08:12)
[2020-02-04] MEDS: Hydrochlorothiazide 25 MG Tab PO SCH (08:12)
[2020-02-04] MEDS: Ertapenem 1 GM in Sodium Chloride 0.9% 50 ML IV SCH (08:12)
[2020-02-04] MEDS: Omeprazole 20 MG Cap.CR PO SCH (08:12)
[2020-02-04] MEDS: Sodium Chloride 0.9% 100 ML IV SCH (08:13)
[2020-02-04] MEDS: Sertraline 50 MG Tab PO SCH (21:01)
[2020-02-05] MEDS: Omeprazole 20 MG Cap.CR PO SCH (07:37)
[2020-02-05] MEDS: Potassium Chloride 10 MEQ Tab.ER PO SCH (08:54)
[2020-02-05] MEDS: Hydrochlorothiazide 25 MG Tab PO SCH (08:54)
[2020-02-05] MEDS: Sodium Chloride 0.9% 100 ML IV SCH (08:54)
[2020-02-05] MEDS: Ertapenem 1 GM in Sodium Chloride 0.9% 50 ML IV SCH (08:55)
[2020-02-05 10:30] LABS: ANION GAP 11.5 mmol/L (5-15)
[2020-02-05] MEDS: Sertraline 50 MG Tab PO SCH (21:05)
[2020-02-06] MEDS: ClonazePAM 0.5 MG Tab PO PRN (00:29)
[2020-02-06] MEDS: Omeprazole 20 MG Cap.CR PO SCH (07:39)
[2020-02-06] MEDS: Sodium Chloride 0.9% 100 ML IV SCH (08:26)
[2020-02-06] MEDS: Ertapenem 1 GM in Sodium Chloride 0.9% 50 ML IV SCH (08:27)
[2020-02-06] MEDS: Potassium Chloride 10 MEQ Tab.ER PO SCH (08:27)
[2020-02-06] MEDS: Hydrochlorothiazide 25 MG Tab PO SCH (08:32)
[2020-02-06 08:33] VITALS: BP 119/57; PULSE 68
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
== END 2020-02-06 12:45 | disposition home or self-care (01) | DRG 177 ==
LOC: KA.IVTHER 10:20 → KA.MS 11:23 → UNDOADMIN 11:23 → KA.MS 11:54
PROVIDERS: ADMIT Nurse Practitioner Family; ATTEND Nurse Practitioner Family
PROC: 02HV33Z Insertion of Infusion Device into Superior Vena Cava, Percutaneous Approach (ICD-10-PCS; principal; 2020-01-26)
DX: J86.9 Pyothorax without fistula (principal); J18.9 Pneumonia, unspecified organism; R53.1 Weakness; H91.90 Unspecified hearing loss, unspecified ear; H54.7 Unspecified visual loss; K21.9 Gastro-esophageal reflux disease without esophagitis; M19.90 Unspecified osteoarthritis, unspecified site; M54.9 Dorsalgia, unspecified; G89.29 Other chronic pain; Z20.828 Contact with and (suspected) exposure to other viral communicable diseases; F41.9 Anxiety disorder, unspecified; F32.9 Major depressive disorder, single episode, unspecified; F39 Unspecified mood [affective] disorder; E78.5 Hyperlipidemia, unspecified; G47.30 Sleep apnea, unspecified; F15.10 Other stimulant abuse, uncomplicated; E66.9 Obesity, unspecified; M51.36 Other intervertebral disc degeneration, lumbar region; Z88.6 Allergy status to analgesic agent; Z88.5 Allergy status to narcotic agent; Z79.899 Other long term (current) drug therapy; I25.2 Old myocardial infarction; Z90.49 Acquired absence of other specified parts of digestive tract; Z90.710 Acquired absence of both cervix and uterus; Z68.28 Body mass index [BMI] 28.0-28.9, adult
CPT/HCPCS: 36415; 36569; 71045; 80048; 80053; 80202; 81001; 82565; 84450; 85025; 87070; 87186; 87205; 96365; 97110-GP; 97162-GP; 97537-GP; A9270-GY; J1335; J1885; J2405; J3370; J7050; U0002

== ENCOUNTER 2020-06-07 11:50 | Emergency (ER) | payer MEDICARE, MEDICAID ==
[2020-06-07] MEDS ORDERED: Sodium Chloride 0.9% 10 ML Syringe FLUSH PRN (12:13)
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
[2020-06-07 13:01] VITALS: BP 107/57; PULSE 80
--- NOTE | 2020-06-07 13:05 | CR ---
[id number] RAD/RAD Chest PA And Lateral EXAM: RAD Chest PA And Lateral INDICATION: SHORTNESS OF BREATH,CHEST PRESSURE. COMPARISON: December 28, 2019. DISCUSSION: Cardiomediastinal silhouette is normal in size and contour. Small amount of residual linear opacities in the left lower lung. Findings are most consistent with scarring. No visible pneumothorax or pleural effusion. No evidence of pneumonia. IMPRESSION: No acute findings. Greyson Noel MD 06/07/20 1857 Thank you for allowing us to participate in the care of your patient.
[2020-06-07 13:09] LABS: CHLORIDE,CL 106 mmol/L (98-107); SODIUM,NA 143 mmol/L (136-145)
[2020-06-07] MEDS ORDERED: Aspirin 81 MG Tab.Chew PO ONE (13:44)
[2020-06-07] MEDS ORDERED: Ondansetron 4 MG/2 ML SDV IVPUSH ONE (13:44)
[2020-06-07] MEDS ORDERED: Nitroglycerin 2% Oint 1 GM UD Packet TOP SCH (13:45)
== END 2020-06-07 14:10 ==
LOC: KA.ED 11:50 → UNDOADMOB 13:38 → KA.MS 13:38
DX: R07.89 Other chest pain (principal); D72.829 Elevated white blood cell count, unspecified; K21.9 Gastro-esophageal reflux disease without esophagitis; I25.2 Old myocardial infarction; Z79.899 Other long term (current) drug therapy; Z20.822 Contact with and (suspected) exposure to COVID-19; Z88.6 Allergy status to analgesic agent; Z88.5 Allergy status to narcotic agent
CPT/HCPCS: 36415; 71046; 80053; 81001; 82550; 82553; 84484; 85025; 85379; 93005; 99284; 99285-25; U0002

== ENCOUNTER 2021-03-17 17:40 | Emergency (ER) | payer MEDICARE, MEDICAID ==
[2021-03-17] MEDS ORDERED: Albuterol/Ipratropium 3.0-0.5 MG/3 ML Neb Soln NEB ONE (17:44)
[2021-03-17] MEDS ORDERED: methylPREDNISolone Sodium Succinate 125 MG/2 ML SDV IVPUSH ONE (17:44)
[2021-03-17] MEDS: Sodium Chloride 0.9% 10 ML Syringe FLUSH PRN ×2 (18:00→18:27)
[2021-03-17 18:20] LABS: ANION GAP 13.8 mmol/L (5-15)
[2021-03-17 18:31] VITALS: BP 139/71; PULSE 88
[2021-03-17] MEDS ORDERED: Azithromycin 250 MG Tab PO ONE (18:33)
[2021-03-17] MEDS ORDERED: Albuterol 8 GM Inhaler INH ONE (18:33)
== END 2021-03-17 18:55 | disposition home or self-care (01) ==
LOC: KA.ED 17:40
DX: J40 Bronchitis, not specified as acute or chronic (principal); I25.2 Old myocardial infarction; K21.9 Gastro-esophageal reflux disease without esophagitis; Z88.5 Allergy status to narcotic agent; Z88.8 Allergy status to other drugs, medicaments and biological substances; Z79.899 Other long term (current) drug therapy; Z20.822 Contact with and (suspected) exposure to COVID-19
CPT/HCPCS: 36415; 71045; 80048; 85025; 94640; 96374; 99284; 99285; A9270; J2930; J3490; U0002; J7620-GY